=== PATIENT | female | born 1935 | race Caucasian/White ===

== ENCOUNTER → 2016-10-16 | Outpatient (CLI) | payer OTHER ==
--- NOTE | 2016-10-16 15:20 | MA ---
Screening Digital Mammogram Clinical Indications: Routine screening. Technique: Standard cephalocaudal and mediolateral oblique projections are obtained. An additional M LO view is performed of the right breast. This examination is processed by the [employer] computer aided de tection system. Comparison: September 2015, September and February 2014, August 2013 and May 2012 Breast density: B; There are scattered fibroglandular densities. Findings: CAD was reviewed. No suspicious findings are identified. Impression: Negative mammogram. . BI-RADS 1. Recommendation: Routine screening is recommended in one year. [facility] will send a result letter to the patient. Negative mammography should not preclude additional workup of a clinically suspicious finding. The patient's information is entered into a reminder system with a target due date for her next mammo gram.
== END ==
LOC: CIMAGING 12:03
PROVIDERS: ATTEND Internal Medicine
DX: Z12.31 Encounter for screening mammogram for malignant neoplasm of breast (principal)
CPT/HCPCS: G0202

== ENCOUNTER 2017-10-09 14:20 | Emergency (ER) | payer OTHER ==
[2017-10-09 14:29] VITALS: O2SAT 97
--- NOTE | 2017-10-09 15:05 | EDPHY ---
H & P Stated Complaint: Recent dx UTI;started Cipro yesterday;numerous c/o today Time Seen by Provider: 10/09/17 14:45 HPI/ROS: Chief Complaint: Urinary tract infection, high blood pressure, fatigue, mild confusion HPI: 82-year-old woman whose had 2 days of urinary symptoms including increasing urgency frequency and dysuria. Patient was seen at her primary care physician's office yesterday. She was diagnosed with UTI and started on ciprofloxacin. Since starting the the antibiotics last night she has had some increasing a mild headache, confusion which is also mild, general malaise and that her blood pressure is high. She has had no nausea or vomiting. No abdominal pain. No back pain. Continuing to have some urgency and frequency and did have some incontinence last night. No fevers or chills. No chest pain or shortness of breath. Patient did read on the medication side effects of the ciprofloxacin is concerned that it is too strong for her and that is her symptoms might be secondary to this medication. She wishes to be changed to something less strong. ROS: 10 point Review of Systems is negative except as noted in the HPI. PMH: Hypertension, hyperlipidemia Social History: No smoking, no alcohol, no recreational drug use Family History: non-contributory Physical Exam: Gen: Awake, Alert, No Distress HEENT: Nose: no rhinorrhea Eyes: PERRLA, EOMI Mouth: Moist mucosa Neck: Supple, no JVD Chest: nontender, lungs clear to auscultation Heart: S1, S2 normal, no murmur Abd: Soft, non-tender, no guarding Back: no CVA tenderness, no midline tenderness Ext: no edema, non-tender Skin: no rash Neuro: CN II-XII intact, Sensation grossly intact, Strength 5/5 in bilateral upper and lower extremities - Personal History Current Tetanus Diphtheria and Acellular Pertussis (TDAP): Yes - Medical/Surgical History Hx Asthma: No Hx Chronic Respiratory Disease: No Hx Diabetes: No Hx Cardiac Disease: No Hx Renal Disease: No Hx Cirrhosis: No Hx Alcoholism: No Hx HIV/AIDS: No Hx Splenectomy or Spleen Trauma: No Other PMH: medical: GERD, Osteo arthritis, LBBB,CHOLESTEROL, HTN,CHRONIC CONSTIPATION. Surgery HYST, colonoscopy Angiogram, Thallium test / APPY/ VOCAL CORD SURGERY - Social History Smoking Status: Never smoked Constitutional: Initial Vital Signs Temperature (C) 36.4 C 10/09/17 14:25 Heart Rate 83 10/09/17 14:25 Respiratory Rate 18 10/09/17 14:25 Blood Pressure 186/96 H 10/09/17 14:25 O2 Sat (%) 97 10/09/17 14:25 O2 Delivery Mode Room Air Allergies/Adverse Reactions: Sulfa (Sulfonamide Antibiotics) Allergy (Verified 12/28/14 21:37) Unknown Home Medications: Medication Instructions Recorded Cholecalciferol Vit D3 [Vitamin D3 2,000 units PO DAILY@10/15/13 2000 units (OTC)] Docusate Sodium [Colace 100 MG 100 mg PO HS 10/15/13 (OTC)] Herbals/Supplements -Info Only 1 each PO AD 10/15/13 Losartan Potassium [Cozaar] 50 mg PO HS 10/15/13 Magnesium 250 mg PO DAILY@10/15/13 Omeprazole [Prilosec 20 mg] 20 mg PO BID 10/15/13 Simvastatin [Zocor 10 mg (RX)] 10 mg PO HS 10/15/13 Cetirizine HCl [Wal-Zyr] 09/10/14 Ferrous Sulfate [Ferrous Sulf 325 09/10/14 MG (OTC)] Magnesium Citrate [Magnesium 300 ml PO ONCE #2 bottle 09/10/14 Citrate 300 ml (*)] Miralax 17 gm (OTC) 09/10/14 Psyllium Husk [Konsyl Easy Mix] 300 gm PO 09/10/14 Tums 500MG (OTC) 09/10/14 Simethicone [GAS-X] 80 mg PO QID #120 tab.chew 10/06/16 Ciprofloxacin [Cipro] 500 mg PO 10/09/17 Nitrofurantoin Monohyd/M-Cryst 100 mg PO BID #10 capsule 10/09/17 [Macrobid 100 mg Capsule] Medical Decision Making ED Course/Re-evaluation: 82-year-old woman with urinary tract infection presenting with various mild complaints and concerned about the prescription that she is taking. I believe her symptoms are likely secondary to urinary tract infection. She certainly nontoxic in appearance in her symptoms are mild. I do think however that starting her on ciprofloxacin is overly aggressive initially for an uncomplicated urinary tract infection she wishes to be off this medication which I think is appropriate. She has taken nitrofurantoin in the past with good success and I witnessed start her on this once again. She has been cautioned to return for any concerns. She will otherwise follow up with primary care physician in about a week. Departure - Departure Disposition: Home, Routine, Self-Care Clinical Impression: UTI (urinary tract infection) Condition: Good Instructions: Urinary Tract Infection in Women (ED) Additional Instructions: Return to the emergency department for increasing confusion, fevers, chills, nausea, vomiting, abdominal pain, shortness of breath, or any other concerns. Follow up with your primary care physician in about 5 days for further evaluation. Referrals: Derrell Teran MD [Primary Care Provider] - As per Instructions Prescriptions: Nitrofurantoin Monohyd/M-Cryst [Macrobid 100 mg Capsule] 100 mg PO BID #10 capsule
[2017-10-09 15:35] VITALS: BP 193/96; PULSE 82; RESP 19; TEMP 98.1
== END 2017-10-09 15:35 | disposition home or self-care (01) ==
DX: N39.0 Urinary tract infection, site not specified (principal); I10 Essential (primary) hypertension

== ENCOUNTER → 2017-11-12 | Outpatient (CLI) | payer OTHER | LOC: CIMAGING 12:05 | DX: Z12.31 Encounter for screening mammogram for malignant neoplasm of breast (principal) ==

== ENCOUNTER → 2018-11-16 | Outpatient (CLI) | payer OTHER | LOC: CIMAGING 12:15 | DX: Z12.31 Encounter for screening mammogram for malignant neoplasm of breast (principal) ==